=== PATIENT | female | born 1945 | race Caucasian/White ===

== ENCOUNTER 2022-10-29 14:27 | Inpatient (IN) ==
[2022-10-29] MEDS ORDERED: SODIUM CHLORIDE 0.9% 1,000 ML IV STA (14:54)
[2022-10-29] MEDS ORDERED: ONDANSETRON 4 MG/2 ML VIAL IV STA (14:54)
[2022-10-29 15:23] LABS: Basophils % 0.2 % (0.0-0.8); Eosinophils % 0.1 % (0.00-10.9); Hemoglobin 14.5 GM/DL (12.0-16.0); Immature Granulocytes % 0.6 %; Immature Granulocytes Absolute 0.07 #; Lymphocytes % 8.6 % (21.3-54.2); Mean Corpuscular HGB Conc 34.5 GM/DL (32-36); Mean Corpuscular Volume 83.3 FL (87-102); Mean Platelet Volume 10.3 FL (9.6-12.0); Monocytes # 0.6 10*3/uL (0.11-0.8); Monocytes % 5.1 % (1.7-12.7); Neutrophils % 85.4 % (38.7-73.9); Platelet Count 264 T/CUMM (130-400); Red Blood Count 5.04 MC/CUMM (3.8-5.5); Red Cell Distribution Width 12.7 % (9.3-17.3); White Blood Count 12.1 T/CUMM (4-12)
[2022-10-29 15:40] LABS: Albumin 3.6 G/DL (3.4-5.0); Bilirubin,Total 0.7 MG/DL (0.20-1.00); Calcium 9.1 MG/DL (8.5-10.1); Osmolality,Calculated 269.2 MOS/KG (273-304); Potassium 3.5 MMOL/L (3.5-5.1); Total Protein 6.5 G/DL (6.4-8.2)
[2022-10-29] MEDS ORDERED: MAGNESIUM SULF RIDER 4 GM/100 ML PREMIX IV PRN (17:07)
[2022-10-29] MEDS ORDERED: MAGNESIUM SULF RIDER 2 GM/50 ML PREMIX IV PRN (17:07)
[2022-10-29] MEDS ORDERED: hydrALAZINE 20 MG/1 ML VIAL IV PRN (17:07)
[2022-10-29] MEDS ORDERED: PROMETHAZINE INJ 12.5 MG in SODIUM CHLORIDE 0.9% 50 ML IV STA (17:09)
[2022-10-29] MEDS ORDERED: MORPHINE 2 MG/1 ML SYRINGE IV STA (17:09)
[2022-10-29] MEDS: LACTATED RINGERS 1,000 ML IV SCH (18:10)
[2022-10-29] MEDS: ENOXAPARIN 40 MG/0.4 ML SYRINGE SUBCUT SCH (18:12)
[2022-10-29] MEDS: metroNIDAZOLE INJ 500 MG/100 ML PREMIX IV SCH (19:04)
[2022-10-29] MEDS: ONDANSETRON 4 MG/2 ML VIAL IV PRN (22:11)
[2022-10-29] MEDS: MORPHINE 2 MG/1 ML SYRINGE IV PRN (22:12)
[2022-10-29] MEDS ORDERED: IPRATROPIUM 500 MCG/2.5 ML NEB RESP TX ONE (23:52)
[2022-10-29] MEDS ORDERED: ALBUTEROL 2.5 MG/3 ML NEB RESP TX ONE (23:52)
[2022-10-30] MEDS: metroNIDAZOLE INJ 500 MG/100 ML PREMIX IV SCH ×4 (00:36→17:55)
[2022-10-30] MEDS: ALBUTEROL/IPRATROPIUM 3 ML NEB RESP TX SCH ×4 (00:48→19:00)
[2022-10-30] MEDS: LACTATED RINGERS 1,000 ML IV SCH ×2 (04:10→16:16)
[2022-10-30 05:06] LABS: Basophils % 0.4 % (0.0-0.8); Eosinophils # 0.1 10*3/uL (0.0-0.87); Eosinophils % 1.3 % (0.00-10.9); Hematocrit 39.1 VOL% (35.7-47.0); Hemoglobin 13.1 GM/DL (12.0-16.0); Immature Granulocytes % 0.6 %; Immature Granulocytes Absolute 0.07 #; Lymphocytes # 2.4 10*3/uL (1.4-4.0); Lymphocytes % 22.3 % (21.3-54.2); Mean Corpuscular HGB Conc 33.5 GM/DL (32-36); Mean Corpuscular Volume 85.4 FL (87-102); Mean Platelet Volume 10.2 FL (9.6-12.0); Monocytes % 8.9 % (1.7-12.7); Neutrophils % 66.5 % (38.7-73.9); Platelet Count 228 T/CUMM (130-400); Red Blood Count 4.58 MC/CUMM (3.8-5.5); Red Cell Distribution Width 12.8 % (9.3-17.3)
[2022-10-30 05:33] LABS: Calcium 8.5 MG/DL (8.5-10.1); Osmolality,Calculated 274.7 MOS/KG (273-304); Potassium 3.1 MMOL/L (3.5-5.1); Risk Ratio 3.47; Thyroid Stimulating Hormone 1.25 uIU/ml (0.358-3.74)
[2022-10-30] MEDS ORDERED: IPRATROPIUM 500 MCG/2.5 ML NEB RESP TX ONE ×3 (07:26→19:01)
[2022-10-30] MEDS ORDERED: ALBUTEROL 2.5 MG/3 ML NEB RESP TX ONE ×3 (07:26→19:02)
[2022-10-30] MEDS ORDERED: ACETAMINOPHEN 650 MG SUPP RECTAL ONE (08:36)
[2022-10-30] MEDS: POTASSIUM CHLORIDE RIDER 10 MEQ/100 ML PREMIX IV PRN ×4 (10:51→18:06)
[2022-10-30] MEDS: ENOXAPARIN 40 MG/0.4 ML SYRINGE SUBCUT SCH (16:43)
[2022-10-30] MEDS: ONDANSETRON 4 MG/2 ML VIAL IV PRN (20:29)
[2022-10-31] MEDS: LACTATED RINGERS 1,000 ML IV SCH ×3 (00:20→10:44)
[2022-10-31] MEDS: metroNIDAZOLE INJ 500 MG/100 ML PREMIX IV SCH ×2 (00:20→06:01)
[2022-10-31] MEDS: ALBUTEROL/IPRATROPIUM 3 ML NEB RESP TX SCH ×4 (01:33→19:19)
[2022-10-31 05:26] LABS: Basophils # 0.1 10*3/uL (0.0-0.2); Basophils % 0.5 % (0.0-0.8); Eosinophils # 0.1 10*3/uL (0.0-0.87); Eosinophils % 0.5 % (0.00-10.9); Hematocrit 38.7 VOL% (35.7-47.0); Hemoglobin 12.9 GM/DL (12.0-16.0); Immature Granulocytes % 0.4 %; Immature Granulocytes Absolute 0.04 #; Lymphocytes # 1.4 10*3/uL (1.4-4.0); Lymphocytes % 13.7 % (21.3-54.2); Mean Corpuscular HGB Conc 33.3 GM/DL (32-36); Mean Corpuscular Volume 85.1 FL (87-102); Mean Platelet Volume 10.3 FL (9.6-12.0); Monocytes # 0.7 10*3/uL (0.11-0.8); Monocytes % 7.1 % (1.7-12.7); Neutrophils % 77.8 % (38.7-73.9); Platelet Count 209 T/CUMM (130-400); Red Blood Count 4.55 MC/CUMM (3.8-5.5); Red Cell Distribution Width 12.9 % (9.3-17.3); White Blood Count 10.1 T/CUMM (4-12)
[2022-10-31 05:47] LABS: Calcium 8.3 MG/DL (8.5-10.1); Osmolality,Calculated 272.7 MOS/KG (273-304)
[2022-10-31] MEDS: POTASSIUM CHLORIDE RIDER 10 MEQ/100 ML PREMIX IV PRN ×7 (08:33→21:54)
[2022-10-31] MEDS: MORPHINE 2 MG/1 ML SYRINGE IV PRN (11:58)
[2022-10-31] MEDS ORDERED: metroNIDAZOLE INJ 500 MG/100 ML PREMIX IV SCH (13:00)
[2022-10-31] MEDS ORDERED: MELATONIN 3 MG TABLET PO PRN (17:33)
[2022-10-31] MEDS ORDERED: BENZONATATE 100 MG CAPSULE PO PRN (17:34)
[2022-10-31] MEDS: DICYCLOMINE 10 MG CAPSULE PO SCH (20:29)
[2022-10-31] MEDS: ENOXAPARIN 40 MG/0.4 ML SYRINGE SUBCUT SCH (20:29)
[2022-11-01] MEDS: POTASSIUM CHLORIDE RIDER 10 MEQ/100 ML PREMIX IV PRN ×2 (00:01→01:40)
[2022-11-01] MEDS: ALBUTEROL/IPRATROPIUM 3 ML NEB RESP TX SCH ×2 (02:29→07:37)
[2022-11-01 05:19] LABS: Basophils # 0.1 10*3/uL (0.0-0.2); Basophils % 0.7 % (0.0-0.8); Eosinophils # 0.4 10*3/uL (0.0-0.87); Eosinophils % 4.2 % (0.00-10.9); Hematocrit 42.7 VOL% (35.7-47.0); Immature Granulocytes % 0.7 %; Immature Granulocytes Absolute 0.06 #; Lymphocytes # 1.7 10*3/uL (1.4-4.0); Lymphocytes % 17.9 % (21.3-54.2); Mean Corpuscular HGB Conc 32.8 GM/DL (32-36); Mean Corpuscular Volume 87.3 FL (87-102); Mean Platelet Volume 9.8 FL (9.6-12.0); Monocytes # 0.8 10*3/uL (0.11-0.8); Monocytes % 8.4 % (1.7-12.7); Neutrophils % 68.1 % (38.7-73.9); Platelet Count 218 T/CUMM (130-400); Red Blood Count 4.89 MC/CUMM (3.8-5.5); Red Cell Distribution Width 12.8 % (9.3-17.3); White Blood Count 9.2 T/CUMM (4-12)
[2022-11-01] MEDS: LACTATED RINGERS 1,000 ML IV SCH (05:30)
[2022-11-01 05:39] LABS: Calcium 8.7 MG/DL (8.5-10.1); Potassium 3.5 MMOL/L (3.5-5.1)
[2022-11-01 07:57] VITALS: BP 131/56
[2022-11-01] MEDS ORDERED: CHOLECALCIFEROL 1,000 UNIT TABLET PO SCH (09:00)
[2022-11-01] MEDS ORDERED: ZINC GLUCONATE 50 MG TABLET PO SCH (09:00)
[2022-11-01] MEDS ORDERED: ASCORBIC ACID 500 MG TABLET PO SCH (09:00)
[2022-11-01] MEDS ORDERED: ARMOUR THYROID 15 MG PO SCH (09:00)
[2022-11-01] MEDS ORDERED: MONTELUKAST 10 MG TABLET PO SCH (09:00)
[2022-11-01] MEDS ORDERED: ROSUVASTATIN 20 MG TABLET PO SCH (09:00)
[2022-11-01] MEDS ORDERED: NON-FORMULARY MEDICATION (Vitamin A 2,400 mcg Capsule) PO SCH (09:00)
[2022-11-01] MEDS ORDERED: CYANOCOBALAMIN 500 MCG TABLET PO SCH (09:00)
[2022-11-01] MEDS ORDERED: ASPIRIN EC 81 MG TABLET PO SCH (09:00)
[2022-11-01] MEDS: DICYCLOMINE 10 MG CAPSULE PO SCH (09:46)
== END 2022-11-01 11:30 | disposition home or self-care (01) | DRG 389 ==
LOC: N.ED 14:27 → N.EDINP 17:07 → SUATTDRO 17:07 → N.EDINP 20:28 → N.5E 20:31
PROVIDERS: ADMIT Internal Medicine; ATTEND Internal Medicine